=== PATIENT | female | born 1970 | race American Indian/Alaskan Native ===

== ENCOUNTER 2020-08-10 20:45 | Emergency (ER) | payer SELFPAY ==
[2020-08-10 21:13] LABS: Amphetamine Screen,Urine PRESUMPTIVE NEGATIVE; Benzodiazepines Screen,Urine PRESUMPTIVE NEGATIVE; Cannabinoid Screen,Urine PRESUMPTIVE POSITIVE; Cocaine Screen,Urine PRESUMPTIVE POSITIVE; Methadone Screen,Urine PRESUMPTIVE NEGATIVE; Opiate Screen,Urine PRESUMPTIVE NEGATIVE
[2020-08-10 21:17] LABS: Bilirubin,Urine NEG (Negative); Blood,Urine NEG (Negative); Color,Urine Yellow (Yellow); Mucus,Urine 3+ /HPF; Protein,Urine <15 mg/dL mg/dL (Negative)
--- NOTE | 2020-08-10 21:22 | Emergency Department Report ---
ED Psych HPI - General Chief Complaint: Psych Stated Complaint: MH Time Seen by Provider: 08/10/20 21:15 Source: patient Mode of arrival: Ambulatory - History of Present Illness Initial Comments: Patient is 49 years old female with history of schizoaffective disorder. Patient presented to the ER with a chief complaint of suicidal ideation, homicidal ideation auditory hallucination. Patient stated that she took 3 tablets of Geodon 80 mg today trying to overdose on medication. Patient is currently calm and in no acute distress. Patient stated that she is constantly hearing voices asking her to kill herself. MD Complaint: suicidal ideation, feels depressed Associated Psychiatric Symptoms: depression, suicidal ideation, homicidal ideation, racing thoughts, auditory hallucinations, visual hallucinations History of same: Yes Quality: constant Context: recent drug abuse If Self Harm: admits thoughts of, has plan, intentional overdose - Related Data Home Medications Medication Instructions Recorded Confirmed Last Taken Benztropine [Cogentin] 0.5 mg PO BID 08/10/20 08/10/20 Unknown Previous Rx's Medication Instructions Recorded Last Taken Type Nitrofurantoin Travis/M-Cryst 100 mg PO Q12HR #12 capsule 08/11/20 Unknown Rx [Macrobid CAP] Valproic Acid [Depakene] 250 mg PO TID #60 capsule 08/11/20 Unknown Rx Ziprasidone HCl [Geodon] 80 mg PO BID #60 cap 08/11/20 Unknown Rx Allergies Allergy/AdvReac Type Severity Reaction Status Date / Time diphenhydramine Allergy Hives Verified 08/10/20 20:55 [From Benadryl] ED Review of Systems ROS: Stated complaint: MH Other details as noted in HPI Comment: All other systems reviewed and negative Constitutional: denies: chills, fever Cardiovascular: denies: chest pain, palpitations Gastrointestinal: denies: abdominal pain, nausea, vomiting, diarrhea, constipation, hematemesis, hematochezia Genitourinary: denies: urgency Musculoskeletal: denies: back pain Neurological: denies: weakness Psychiatric: depression, auditory hallucinations, visual hallucinations, homicidal thoughts, suicidal thoughts ED Past Medical Hx - Past Medical History Previous Medical History?: Yes Hx Psychiatric Treatment: Yes (Schizoaffective) - Surgical History Past Surgical History?: Yes Additional Surgical History: Left hand - Social History Smoking Status: Current Every Day Smoker Substance Use Type: Alcohol, Cocaine, Marijuana - Medications Home Medications: Home Medications Medication Instructions Recorded Confirmed Last Taken Type Benztropine [Cogentin] 0.5 mg PO BID 08/10/20 08/10/20 Unknown History Nitrofurantoin Travis/M-Cryst 100 mg PO Q12HR #12 capsule 08/11/20 Unknown Rx [Macrobid CAP] Valproic Acid [Depakene] 250 mg PO TID #60 capsule 08/11/20 Unknown Rx Ziprasidone HCl [Geodon] 80 mg PO BID #60 cap 08/11/20 Unknown Rx ED Physical Exam - General Limitations: No Limitations General appearance: alert, in no apparent distress - Head Head exam: Present: atraumatic, normocephalic, normal inspection - Eye Eye exam: Present: normal appearance, PERRL - ENT ENT exam: Present: normal exam, normal orophraynx, mucous membranes moist - Neck Neck exam: Present: normal inspection, full ROM. Absent: tenderness, meningismus - Respiratory Respiratory exam: Present: normal lung sounds bilaterally - Cardiovascular Cardiovascular Exam: Present: regular rate, normal rhythm, normal heart sounds - GI/Abdominal GI/Abdominal exam: Present: soft, normal bowel sounds. Absent: distended, tenderness, guarding, rebound, rigid, organomegaly, mass, bruit, pulsatile mass, hernia - Extremities Exam Extremities exam: Present: normal inspection, full ROM, normal capillary refill. Absent: pedal edema, calf tenderness - Back Exam Back exam: Present: normal inspection, full ROM. Absent: CVA tenderness (R), CVA tenderness (L) - Neurological Exam Neurological exam: Present: alert, oriented X3, CN II-XII intact, normal gait, reflexes normal. Absent: motor sensory deficit - Psychiatric Psychiatric exam: Present: depressed, homicidal ideation, suicidal ideation - Skin Skin exam: Present: warm, intact, normal color ED Course Vital Signs 08/10/20 08/11/20 08/11/20 20:57 02:24 09:11 Temperature 98 F 97.7 F 97.3 F L Pulse Rate 70 64 65 Respiratory 16 16 17 Rate Blood Pressure 130/88 143/99 169/91 [Left] O2 Sat by Pulse 99 98 100 Oximetry ED Medical Decision Making - Lab Data Result diagrams: 08/10/20 21:13 08/10/20 21:13 Critical care attestation.: If time is entered above; I have spent that time in minutes in the direct care of this critically ill patient, excluding procedure time. ED Disposition Clinical Impression: Cocaine use disorder, Schizoaffective disorder, H/O borderline personality disorder, UTI (urinary tract infection) Disposition: DC-01 TO HOME OR SELFCARE Is pt being admited?: No Condition: Stable Instructions: Urinary Tract Infection in Women (ED), Bipolar Disorder (ED), Schizoaffective Disorder (ED), Suicide Prevention for Adults (ED) Additional Instructions: Please follow-up with the outpatient psychiatric referrals that you were given by the psychiatric team. Return to the emergency department with any worsening of your symptoms, thoughts of harming your self or others, or with any acute distress. [facility] [phone] [employer] [facility] [phone] Transitional Long Term Providers: Boby Harden Emerson [phone] Address: [address] [place] [address] Original: Tay Aranda [phone] Ms. Wells: Claudia Romero [phone] Ms. Vashti Adams Tay [phone] [facility] [phone] Ms. Roe: [phone] [facility] [phone] [facility] Prescriptions: Valproic Acid [Depakene] 250 mg PO TID #60 capsule Ziprasidone HCl [Geodon] 80 mg PO BID #60 cap Nitrofurantoin Travis/M-Cryst [Macrobid CAP] 100 mg PO Q12HR #12 capsule Referrals: [facility] [Outside] - 2-3 Days PRIMARY CARE, [Primary Care Provider] - 2-3 Days
[2020-08-10 21:35] LABS: Basophils # (Auto) 0.1 K/mm3 (0.0-0.1); Basophils % (Auto) 2.5 % (0.0-1.8); Eosinophils # (Auto) 0.2 K/mm3 (0.0-0.4); Eosinophils % (Auto) 4.4 % (0.0-4.3); Hematocrit 43.1 % (30.3-42.9); Hemoglobin 13.9 gm/dl (10.1-14.3); Lymphocytes # (Auto) 1.7 K/mm3 (1.2-5.4); Lymphocytes % (Auto) 42.2 % (13.4-35.0); Mean Corpuscular HGB Conc 32 % (30-34); Mean Corpuscular Volume 88 fl (79-97); Monocytes # (Auto) 0.3 K/mm3 (0.0-0.8); Monocytes % (Auto) 8.5 % (0.0-7.3); Platelet Count 226 K/mm3 (140-440); Red Blood Count 4.89 M/mm3 (3.65-5.03); Red Cell Distribution Width 15.1 % (13.2-15.2)
[2020-08-10 21:56] LABS: Blood Urea Nitrogen 17 mg/dL (7-17); Calcium 8.8 mg/dL (8.4-10.2); Hemolysis Index 8
[2020-08-10 21:57] LABS: BUN/Creatinine Ratio 24
[2020-08-10] MEDS: NITROFURANTOIN MONOHYD/M-CRYST 100 MG CAP PO SCH (23:40)
[2020-08-11 09:13] VITALS: BP 169/91
--- NOTE | 2020-08-11 09:59 | Consultation ---
History of Present Illness - Reason for Consult Consult date: 08/11/20 Reason for consult: [facility] Requesting physician: NANDA DO - History of Present Psychiatric Illness Per ED Provider: Patient is 49 years old female with history of schizoaffective disorder. Patient presented to the ER with a chief complaint of suicidal ideation, homicidal ideation auditory hallucination. Patient stated that she took 3 tablets of Geodon 80 mg today trying to overdose on medication. Patient is currently calm and in no acute distress. Patient stated that she is constantly hearing voices asking her to kill herself. Per [facility]: Pt is a 49 year old AA female; Per triage note, "For 2 days has been having fights with people. Suicidal thoughts today and plans to take an ov erdose. Requesting detox from substance abuse." Pt carries a diagnosis of Schizoaffective Disorder. Pt is not followed by a psychiatrist and has no therapist. Pt is on no psychiatric medications; "I'm supposed to be on some, but I'm not." Pt has not been on meds in over a year. Pt was admitted to inpatient psych, "many years ago." Pt endorses active AH command in nature to kill self. Pt keeps her head covered throughout assessment and mumbles. Pt does not appear to be responding to internal stimuli. Pt appears to be wanting to rest. Pt endorses active homicidal thoughts. Pt states that she has been getting into frequent arguments with others. Pt is calm and cooperative. Pt reports that she is currently homeless. Pt reports that she has been homeless for a year. Pt does not stay in shelters; "I just stay in the street." Pt requests a place to stay/correction home. Pt reports that she can not stay in a detention because she does not have an ID.Pt reports that she uses cocaine daily (at least $50/day). PSYCH HPI Patient is a marriage, homeless, unemployed currently on disability income -[place] female who has family that currently resides in [facility] with past psychiatric history of schizoaffective disorder, borderline personali ty disorder, bipolar and depression presents to the ED with chief complaint of suicidal ideation accompanied by command auditory hallucination. Patient reports she knows she is in the emergency room and that yesterday she was hearing voices and was feeling suicidal but today she cannot tell me how she feels because it is too early and she is just waking her from sleep. When asked what makes her to feel that way she reported because she is not been well managed with the medication and that when she remember things that happened to her when she was younger that triggers emotions and makes her depressed and suicidal. Patient states that she normally does to take Geodon valproate but she does not have any of this medication anymore, as patient that she had told the ED provider that took up to 80 mg of her geodon in an attempt to commit suicide but if she does not have medication, how is that possible, patient reported after she took the medication she threw the remaining away. Patient reports she does get social disability income close to $800, spends her money on drugs. states she does not have an outpatient primary care provider, she has not been to ELECTRIC METER TECHNICIAN. I informed patient that she is able to get detention where she is asked to pay, would she accept alongside her medications. Patient also endorses spending her money on drugs all the time, PAST PSYCHIATRIC HISTORY Diagnoses: schizoaffective disorder, borderline personality disorder, bipolar and depression Suicide attempts or Self-harm behavior: Yes Prior psychiatric hospitalizations: Yes Substance Abuse history: Cocaine Previous psychiatric medications tried: Valproate and Geodon Outpatient treatment: none PAST MEDICAL HISTORY: none reported Family Psychiatric History: None reported or documented SOCIAL HISTORY Marital Status: Living Arrangements: homeless Employment Status: Unemployed, gets SS Access to guns/weapons: none Education: 10th grade History of Abuse:Yes Legal History: Yes REVIEW OF SYSTEMS Constitutional: Negative for weight loss ENT: Negative for stridor Respiratory: Negative for cough or hemoptysis All other systems reviewed and are negative MENTAL STATUS EXAMINATION General Appearance and Behavior: Age appropriate, poor hygiene, dishelved, wearing worn clothes, lying in bed, good eye contact, cooperative polite with questioning. Cooperation: Participating/engaged Psychomotor Behavior: unremarkable and within normal limits Mood: I don't know Affect and affective range: , irritable, Thought Process: Illogical, Thought Content: helplesness, Illogical, Speech: Normal volume, Regular rate and rhythm Intellectual Functioning: Average Suicidal Ideation: Passive Homicidal Ideation: Denies HI Impulse Control: Impaired Insight and Judgment: Limited insight and judgment Memory: Short term memory intact Attention: Normal Orientation: Alert, oriented Assessment and Plan - Psychiatric problem (1) Cocaine use disorder Current Visit: Yes Status: Acute (2) Schizoaffective disorder Current Visit: Yes Status: Acute (3) H/O borderline personality disorder Current Visit: Yes Status: Acute Treatment Plan Patient says she does not know how she feels this morning, endorses wishes to be placed in housing facility even if it means she has to pay and would like her medications restarted. MEDICATIONS: Restart home medications Risks, benefits and alternatives of medications discussed with the patient, questions answered and consent obtained from patient. PSYCHOTHERAPY: Supportive psychotherapy provided MEDICAL: Per primary team DELIRIUM PRECAUTIONS: Please re-orient patient frequently, keep lights on during the day, and minimize benzodiazepines and opiates as these medications could worsen patient's confusion. FASHION SHOW DIRECTOR: DISPOSITION: Do Not Recommend acute inpatient psychiatric hospitalization at this time. Defer to Case management for placement LEGAL STATUS: [id number] rescinded FOLLOW-UP: Will sign off Thank you for the consult. Please contact with any questions and/or concerns. Medications and Allergies Allergies Allergy/AdvReac Type Severity Reaction Status Date / Time diphenhydramine Allergy Hives Verified 08/10/20 20:55 [From Benadryl] Home Medications Medication Instructions Recorded Confirmed Last Taken Type Benztropine [Cogentin] 0.5 mg PO BID 08/10/20 08/10/20 Unknown History Valproic Acid [Depakene] 250 mg PO TID #60 capsule 08/11/20 Unknown Rx Ziprasidone HCl [Geodon] 80 mg PO BID #60 cap 08/11/20 Unknown Rx Active Meds: Active Medications Nitrofurantoin Macrocrystals (Macrobid) 100 mg PO BID JOEY Last Admin: 08/10/20 23:40 Dose: 100 mg Documented by: Mental Status Exam - Vital signs Last Vital Signs Temp 97.3 F L 08/11/20 09:11 Pulse 65 08/11/20 09:11 Resp 17 08/11/20 09:11 BP 169/91 08/11/20 09:11 Pulse Ox 100 08/11/20 09:11 Results Result Diagrams: 08/10/20 21:13 08/10/20 21:13 Abnormal lab results 08/10/20 08/10/20 08/10/20 Range/Units 20:57 21:13 21:13 WBC (4.5-11.0) K/mm3 Hct (30.3-42.9) % Lymph % (Auto) (13.4-35.0) % Duchesne % (Auto) (0.0-7.3) % Eos % (Auto) (0.0-4.3) % Baso % (Auto) (0.0-1.8) % Seg Neutrophils # (1.8-7.7) K/mm3 Potassium (3.6-5.0) mmol/L Glucose (65-100) mg/dL Urine WBC (Auto) 60.0 H (0.0-6.0) /HPF U Epithel Cells (Auto) 14.0 H (0-13.0) /HPF Salicylates < 0.3 L (2.8-20.0) mg/dL Acetaminophen 5.0 L (10.0-30.0) ug/mL 08/10/20 08/10/20 Range/Units 21:13 21:13 WBC 4.0 L (4.5-11.0) K/mm3 Hct 43.1 H (30.3-42.9) % Lymph % (Auto) 42.2 H (13.4-35.0) % Duchesne % (Auto) 8.5 H (0.0-7.3) % Eos % (Auto) 4.4 H (0.0-4.3) % Baso % (Auto) 2.5 H (0.0-1.8) % Seg Neutrophils # 1.7 L (1.8-7.7) K/mm3 Potassium 3.4 L (3.6-5.0) mmol/L Glucose 120 H (65-100) mg/dL Urine WBC (Auto) (0.0-6.0) /HPF U Epithel Cells (Auto) (0-13.0) /HPF Salicylates (2.8-20.0) mg/dL Acetaminophen (10.0-30.0) ug/mL All other labs normal. Assessment and Plan - Psychiatric problem (1) Cocaine use disorder Current Visit: Yes Status: Acute (2) Schizoaffective disorder Current Visit: Yes Status: Acute (3) H/O borderline personality disorder Current Visit: Yes Status: Acute
[2020-08-11] MEDS ORDERED: ZIPRASIDONE 40 MG CAP PO SCH (11:00)
[2020-08-11] MEDS: NITROFURANTOIN MONOHYD/M-CRYST 100 MG CAP PO SCH (11:47)
[2020-08-11] MEDS ORDERED: VALPROIC ACID 250 MG CAP PO SCH (14:00)
== END 2020-08-11 13:03 | disposition home or self-care (01) ==
LOC: EEVIPCON 20:45 → ED 20:45
DX: F25.8 Other schizoaffective disorders (principal); N39.0 Urinary tract infection, site not specified; F14.10 Cocaine abuse, uncomplicated; F17.200 Nicotine dependence, unspecified, uncomplicated; F12.10 Cannabis abuse, uncomplicated; Z88.6 Allergy status to analgesic agent
CPT/HCPCS: 36415; 80048; 80307; 80320; 81001; 85025; 87086; G0480